=== PATIENT | male | born 1965 | race Caucasian/White ===

== ENCOUNTER 2017-03-25 09:42 | Emergency (ER) | payer BC, OTHER ==
[~2017-03-25] VITALS: Ht 175.3 cm; Wt 85.3 kg
[2017-03-25 10:17] LABS: Basophils # (auto) 0 uL; Basophils % (auto) 0.4 % (0.0-2.0); CONDITION Y; Eosinophils # (auto) 0 uL; Hematocrit 44.7 % (41.0-53.0); Hemoglobin 15.3 g/dL (13.5-17.5); Lymphocytes # (auto) 1.1 uL; Mean Corpuscular Hemoglobin 30.2 pg (28.0-32.0); Mean Corpuscular Hgb Conc. 34.3 g/dL (32.0-36.0); Mean Platelet Volume 7.3 fL (7.4-10.4); Monocytes # (auto) 0.2 uL; Monocytes % (auto) 4.5 % (0.0-12.0); Neutrophils # (auto) 2.7 uL; Neutrophils % (auto) 67.1 % (37.0-80.0); Platelet Count (auto) 261 10^3/uL (140-450); Red Cell Distribution Width 12.6 % (11.6-16.0); White Blood Cell 4.1 10^3/uL (4.4-10.8)
[2017-03-25 10:48] LABS: Albumin 4.2 g/dL (3.4-5.0); BUN/Creatinine Ratio 15.2; Bilirubin, Total 0.7 mg/dL (0.2-1.0); Calcium 8.8 mg/dL (8.5-10.1); Potassium 4.2 mmol/L (3.5-5.1); Total Protein 7.3 g/dL (6.4-8.2)
[2017-03-25] MEDS ORDERED: PANTOPRAZOLE SODIUM 40 MG/10 ML VIAL IV ONE (12:30)
[2017-03-25] MEDS ORDERED: DONNATAL 5ml ORAL Elix (BELLADONNA ALK-PHENOBARB) PO ONE (12:30)
[2017-03-25] MEDS ORDERED: ONDANSETRON HCL 4 MG/2 ML VIAL IV ONE (12:30)
[2017-03-25] MEDS ORDERED: LIDOCAINE VISCOUS 2% 15ML UD PO ONE (12:30)
[2017-03-25] MEDS ORDERED: SODIUM CHLORIDE 0.9% 1,000 ML IV ONE (12:30)
[2017-03-25] MEDS ORDERED: ALUM & MAG HYDROX-SIMETH LIQ(MAALOX) 30 ML PO ONE (12:30)
[2017-03-25] MEDS ORDERED: MORPHINE SULFATE 4 MG/ML SYRG IV ONE (12:30)
[2017-03-25 13:54] LABS: Urine Bilirubin Negative (Negative); Urine Blood Negative /uL (Negative); Urine Color Yellow (Yellow); Urine Glucose Normal (Normal); Urine Ketone Negative (Negative); Urine Mucus FEW (None Seen); Urine Nitrite Negative (Negative); Urine RBC <1 /hpf (0 - 3); Urine Urobilinogen Normal (Negative); Urine pH 5.5 (5.0-8.0)
[2017-03-25 14:14] VITALS: BP 123/74
== END 2017-03-25 14:14 | disposition home or self-care (01) ==
LOC: ER 09:42
DX: K21.9 Gastro-esophageal reflux disease without esophagitis (principal); Z87.442 Personal history of urinary calculi
CPT/HCPCS: 36415; 74176; 80053; 81001; 82150; 83690; 85025; 93005; 96361; 96374; 96375; 99285; C9113; J2405

== ENCOUNTER 2019-01-31 19:46 | Emergency (ER) | payer OTHER ==
[~2019-01-31] VITALS: Ht 177.8 cm; Wt 83.9 kg
[2019-01-31 21:00] LABS: Urine Bacteria NONE SEEN /hpf (None Seen); Urine Blood Negative /uL (Negative); Urine Specific Gravity 1.023 (1.001-1.035); Urine WBC 1 /hpf (0 - 3)
[2019-01-31 22:08] LABS: Basophils # (auto) 0 uL; Basophils % (auto) 0.4 % (0.0-2.0); Eosinophils # (auto) 0.1 uL; Hematocrit 44.6 % (41.0-53.0); Hemoglobin 15.2 g/dL (13.5-17.5); Lymphocytes # (auto) 1.7 uL; Lymphocytes % (auto) 35.8 % (10.0-50.0); Mean Corpuscular Hemoglobin 30.1 pg (28.0-32.0); Mean Corpuscular Volume 88.3 fL (80.0-100.0); Monocytes # (auto) 0.4 uL; Monocytes % (auto) 8.6 % (0.0-12.0); Neutrophils # (auto) 2.5 uL; Neutrophils % (auto) 52.2 % (37.0-80.0); Nucleated Red Blood Cells % 0.3 %; Platelet Count (auto) 231 10^3/uL (140-450); Red Blood Cells 5.05 10^6/uL (4.5-5.90); Red Cell Distribution Width 12.9 % (11.8-14.3); White Blood Cell 4.8 10^3/uL (4.4-10.8)
[2019-01-31 22:32] LABS: Potassium 3.8 mmol/L (3.5-5.1)
[2019-01-31 22:35] LABS: Albumin 4.1 g/dL (3.4-5.0); BUN/Creatinine Ratio 20.3; Calcium 8.9 mg/dL (8.5-10.1)
[2019-01-31 22:38] LABS: Bilirubin, Total 0.7 mg/dL (0.2-1.0); Total Protein 7.6 g/dL (6.4-8.2)
[2019-02-01 06:08] VITALS: BP 114/82
== END 2019-02-01 06:08 | disposition home or self-care (01) ==
LOC: ER 19:52
DX: K59.00 Constipation, unspecified (principal); R10.9 Unspecified abdominal pain
CPT/HCPCS: 36415; 74176; 80053; 81001; 82150; 83690; 85025

== ENCOUNTER 2022-07-18 19:12 | Inpatient (IN) | payer OTHER ==
[~2022-07-18] VITALS: Ht 188 cm; Wt 90.0 kg
[2022-07-18 20:09] LABS: Basophils # (auto) 0 10 ^3/uL (0-0.2); Basophils % (auto) 0.3 % (0.0-2.0); Eosinophils # (auto) 0.1 10 ^3/uL (0-0.8); Eosinophils % (auto) 2.5 % (0.0-7.0); Hemoglobin 15.7 g/dL (13.5-17.5); Lymphocytes # (auto) 1.9 10 ^3/uL (0.4-5.4); Lymphocytes % (auto) 31.8 % (10.0-50.0); Mean Corpuscular Hgb Conc. 34.9 g/dL (32.0-36.0); Mean Corpuscular Volume 85.9 fL (80.0-100.0); Monocytes # (auto) 0.4 10 ^3/uL (0-1.3); Monocytes % (auto) 7.5 % (0.0-12.0); Neutrophils # (auto) 3.4 10 ^3/uL (1.6-8.6); Neutrophils % (auto) 57.9 % (37.0-80.0); Nucleated Red Blood Cells % 0.1 %; Red Blood Cells 5.24 10^6/uL (4.5-5.90); Red Cell Distribution Width 12.9 % (11.8-14.3); White Blood Cell 5.9 10^3/uL (4.4-10.8)
[2022-07-18 20:27] LABS: Albumin 4.4 g/dL (3.4-5.0); Calcium 9.1 mg/dL (8.5-10.1); Potassium 4.5 mmol/L (3.5-5.1)
[2022-07-18 20:30] LABS: BUN/Creatinine Ratio 26.8; Bilirubin, Total 0.6 mg/dL (0.2-1.0); Total Protein 7.4 g/dL (6.4-8.2)
[2022-07-18] MEDS ORDERED: NITROGLYCERIN 0.4 MG SL TAB SL ONE (21:00)
[2022-07-18] MEDS ORDERED: ASPirin 325 MG TAB PO ONE (21:00)
[2022-07-18 21:03] LABS: INR 0.98 (0.9-1.15); Partial Thromboplastin Time 27.4 sec (24.6-33.4)
[2022-07-18 22:31] LABS: Urine Bacteria NONE SEEN /hpf (None Seen); Urine Blood Negative /uL (Negative); Urine Specific Gravity 1.021 (1.001-1.035); Urine WBC 1 /hpf (0 - 3)
[2022-07-18] MEDS ORDERED: ACETAMINOPHEN 325 MG TAB PO PRN (22:45)
[2022-07-18] MEDS ORDERED: MORPHINE SULFATE INJ 2 MG/ml SYRG IV PRN (22:45)
[2022-07-18] MEDS ORDERED: NITROGLYCERIN 0.4 MG SL TAB SL PRN (22:45)
[2022-07-18] MEDS ORDERED: DOCUSATE SOD 100 MG CAP PO PRN (22:45)
[2022-07-18] MEDS ORDERED: ONDANSETRON HCL 4 MG/2 ML VIAL IV PRN (22:45)
[2022-07-18] MEDS ORDERED: HYDROcodone-ACET 5/325MG TAB PO PRN (22:45)
[2022-07-19] MEDS: SOD CHL 0.45% 1,000 ML IV SCH ×2 (01:28→18:04)
[2022-07-19 04:52] LABS: Basophils # (auto) 0 10 ^3/uL (0-0.2); Basophils % (auto) 0.4 % (0.0-2.0); Eosinophils # (auto) 0.2 10 ^3/uL (0-0.8); Eosinophils % (auto) 5.1 % (0.0-7.0); Hematocrit 40.8 % (41.0-53.0); Hemoglobin 14.5 g/dL (13.5-17.5); Lymphocytes # (auto) 1.6 10 ^3/uL (0.4-5.4); Lymphocytes % (auto) 43.7 % (10.0-50.0); Mean Corpuscular Hemoglobin 30.5 pg (28.0-32.0); Mean Corpuscular Hgb Conc. 35.4 g/dL (32.0-36.0); Mean Corpuscular Volume 86.1 fL (80.0-100.0); Monocytes # (auto) 0.3 10 ^3/uL (0-1.3); Monocytes % (auto) 8.9 % (0.0-12.0); Neutrophils # (auto) 1.6 10 ^3/uL (1.6-8.6); Neutrophils % (auto) 41.9 % (37.0-80.0); Red Blood Cells 4.74 10^6/uL (4.5-5.90); White Blood Cell 3.7 10^3/uL (4.4-10.8)
[2022-07-19 05:10] LABS: Potassium 4.2 mmol/L (3.5-5.1)
[2022-07-19 05:17] LABS: BUN/Creatinine Ratio 29.8; Bilirubin, Total 0.5 mg/dL (0.2-1.0); Calcium 8.6 mg/dL (8.5-10.1); Total Protein 6.7 g/dL (6.4-8.2)
[2022-07-19] MEDS: ASPirin 81 mg TAB PO SCH (10:05)
[2022-07-19 16:16] VITALS: BP 113/82
[2022-07-19 16:56] VITALS: BP 113/82
[2022-07-19 22:00] VITALS: BP 110/73
[2022-07-19] MEDS: ATORVASTATIN 20 MG TAB PO SCH (22:26)
[2022-07-20 05:00] VITALS: BP 114/68
[2022-07-20 09:00] VITALS: BP 121/85
[2022-07-20] MEDS: ASPirin 81 mg TAB PO SCH (09:19)
[2022-07-20 13:00] VITALS: BP_SYST 118; BP_SYST 124; BP_DIAS 65; BP_DIAS 69
[2022-07-20] MEDS: SOD CHL 0.45% 1,000 ML IV SCH (14:45)
[2022-07-20 17:00] VITALS: BP 112/74
[2022-07-20 20:00] VITALS: BP 134/87
[2022-07-20 22:00] VITALS: BP 101/78
[2022-07-20] MEDS: ATORVASTATIN 20 MG TAB PO SCH (22:00)
[2022-07-21 05:00] VITALS: BP 108/73
[2022-07-21 09:00] VITALS: BP 116/81
[2022-07-21] MEDS: ASPirin 81 mg TAB PO SCH (09:00)
[2022-07-21 13:00] VITALS: BP 120/81
[2022-07-21 17:00] VITALS: BP 129/86
[2022-07-21 22:00] VITALS: BP 117/83
[2022-07-21] MEDS: ATORVASTATIN 20 MG TAB PO SCH (22:00)
[2022-07-21] MEDS: SOD CHL 0.45% 1,000 ML IV SCH (22:03)
[2022-07-22 05:00] VITALS: BP 110/78
[2022-07-22] MEDS: SOD CHL 0.45% 1,000 ML IV SCH (06:45)
[2022-07-22] MEDS ORDERED: ADENOSINE 76 MG in GIVE UN-DILUTED 0 ML IV ONE ×2 (07:30→08:00)
[2022-07-22 08:00] VITALS: BP 116/84
[2022-07-22 08:30] VITALS: BP 124/79
[2022-07-22 09:17] VITALS: BP 116/84
[2022-07-22] MEDS: ASPirin 81 mg TAB PO SCH (10:07)
[2022-07-22 13:00] VITALS: BP 116/83
[2022-07-22 13:48] VITALS: BP 116/83
== END 2022-07-22 14:39 | disposition home or self-care (01) | DRG 313 ==
LOC: ER 19:12 → TELE 22:38 → WEST WING 07-19 16:02
PROVIDERS: ADMIT Nurse Practitioner Family; ATTEND Family Medicine
DX: R07.89 Other chest pain (principal); R53.1 Weakness; Z20.822 Contact with and (suspected) exposure to COVID-19; Z87.442 Personal history of urinary calculi
CPT/HCPCS: 36415; 71045; 74176; 78452; 80053; 81001; 84484; 85025; 85610; 85730; 87426; 93005; 93017; 96360; G0378; J0153